=== PATIENT | female | born 1985 | race Caucasian/White ===

== ENCOUNTER 2019-08-04 14:40 | Outpatient (RCR) | payer OTHER, SELFPAY ==
[2019-08-04 14:45] VITALS: BMI 37.4
== END 2019-11-02 23:59 | disposition home or self-care (01) ==
LOC: ANHDMC 14:40
PROVIDERS: Visit Provider Obstetrics & Gynecology
DX: O24.419 Gestational diabetes mellitus in pregnancy, unspecified control (principal); Z3A.33 33 weeks gestation of pregnancy; Z71.3 Dietary counseling and surveillance
CPT/HCPCS: 97802

== ENCOUNTER 2019-09-08 11:19 | Outpatient (RCR) | payer OTHER, SELFPAY ==
[2019-08-03 14:47] VITALS: BP 116/71; PULSE 83
[2019-08-06 17:38] VITALS: BP 116/71; PULSE 99
[2019-08-10 07:49] VITALS: BP 109/72; PULSE 112
[2019-08-13 16:30] VITALS: BP 116/77; PULSE 92
[2019-08-17 16:23] VITALS: BP 101/70; PULSE 101
[2019-08-20 15:51] VITALS: BP 121/73; PULSE 117
[2019-08-21 14:43] VITALS: BP 112/73; PULSE 99
[2019-08-24 14:51] VITALS: BP 115/69; PULSE 108
[2019-08-27 15:00] VITALS: BP 120/68; PULSE 86
[2019-08-31 13:18] VITALS: BP 112/69; PULSE 95
[2019-09-03 12:50] VITALS: BP 118/77; PULSE 94
--- NOTE | ~2019-09-08 | US_ITS ---
US OB follow up w BPP DATE: 08/13/2019 17:04 INDICATION: Nonreactive nonstress test. Gestational diabetes. TECHNIQUE: Real-time imaging and Doppler analysis COMPARISON: 08/06/2019 obstetrical ultrasound examination with biophysical profile FINDINGS: Live watson intrauterine gestation, fetus in vertex presentation, longitudinal lie, feta l heart rate of 152 bpm. Subjectively normal amount of amniotic fluid. Amniotic fluid measures 14.63 cm. 5th percentile OSVALDO is 7.7 cm. 95th percentile OSVALDO is 24.9 cm. BIOPHYSICAL PROFILE reported by pump house technician: breathin out of 2 movement: 2 out of 2 tone: 2 out of 2 Amniotic fluid pocket: 2 out of 2 Total score: 8 out of 8 IMPRESSION: Normal biophysical profile score of 8 out of 8 Reviewed, dictated and finalized at Location A. Reviewed, dictated and finalized at location B. ORESIST CONTACT PRINTER
--- NOTE | ~2019-09-08 | US_ITS ---
US OB follow up w BPP DATE: 08/27/2019 15:04 INDICATION: Non-reactive non stress test. Gestational diabetes. TECHNIQUE: Real time imaging and doppler analysis. COMPARISON: 08/06/2019 obstetrical ultrasound with BPP FINDINGS: Live watson intrauterine gestation, fetus in longitudinal lie, vertex presentation. Fe annemarie heart rate of 163 beats per minute. Fundal placenta. BPD: 9.54 cm; estimated gestational age of 39 weeks Head circumference: 33.81 cm; 38 weeks 6 days Abdominal circumference: 35.65 cm; 39 weeks 4 days Femur length: 7.09 cm; 36 weeks 2 days Composite age by Hadlock formula: 38 weeks 3 days plus or minus 2 weeks 5 days STACI: 09/07/2019 (compared to 09/10/2019 by LMP) Estimated weight: 3574 plus or minus 536 grams FL/BPD: 74.30 (normal range 71.0 - 87.0) HC/AC: 0.95 (normal range 0.88 - 1.06) FL/AC: 19.89 (normal range 20.00 - 24.00) FL/HC: 20.97 (normal range 20.77 - 23.00) BIOPHYSICAL PROFILE reported by medical technician assistant: breathin out of 2 movement: 2 out of 2 tone: 2 out of 2 Amniotic fluid pocket: 2 out of 2 Total score: 8 out of 8 IMPRESSION: Normal biophysical profile of 8 out of 8 Composite age by Hadlock formula: 38 weeks 3 days plus or minus 2 weeks 5 days STACI: 09/07/2019 (compared to 09/10/2019 by LMP) Estimated weight: 3574 plus or minus 536 grams Reviewed, dictated and finalized at Location A. Reviewed, dictated and finalized at location B. LERATOR TECHNICIAN
--- NOTE | ~2019-09-08 | US_ITS ---
EXAMINATION: US OB BPP wo non-stress DATE: 09/03/2019 12:55 INDICATION: Gestational diabetes. Third trimester. TECHNIQUE: Real-time pelvic ultrasound was performed. COMPARISON: Ultrasound 08/27/2019 FINDINGS: There is a single living fetus in vertex presentation. The placenta is fundal. heart rate is 1 45 beats per minute (bpm). Biophysical profile performed by the technologist: breathing (30 sec sustained breathing in 30 minutes): 2 out of 2 movement (3 gross body movements in 30 minutes): 2 out of 2 tone (one episode of qhbwrka-kvduwwgbk-fqfvxsh limb movement): 2 out of 2 Amniotic fluid pocket (2 cm): 2 out of 2 Total score: 8 out of 8 IMPRESSION: 1. Single living fetus in vertex presentation. 2. Biophysical profile 8 out of 8. Reviewed, dictated and finalized at location A. RICT EXTENSION SERVICE AGENT
--- NOTE | ~2019-09-08 | US_ITS ---
EXAMINATION: US OB limited w BPP EXAM DATE: 08/20/2019 15:32 INDICATION: Gestational diabetes. Assess biophysical profile and amniotic fluid index. Third [facility] er. TECHNIQUE: Pelvic obstetrical transabdominal sonogram was performed by a technologist. There are mu ltiple grayscale and Doppler images available for interpretation. Comparison is made to prior examina tion from 08/13/2019. FINDINGS: There is a single fetus identified in vertex presentation with a heart rate of 165 beats pe r minute. The placenta is located in the fundal position. There is no sonographic evidence of retrop lacental hemorrhage identified. The amniotic fluid index is 14.0 centimeters, which is normal. BIOPHYSICAL PROFILE (performed by the technologist) breathing (30 sec sustained breathing in 30 minutes): 2 out of 2 movement (3 gross body movements in 30 minutes): 2 out of 2 tone (one episode of stahmyy-tdordbfme-unsehks limb movement): 2 out of 2 Amniotic fluid pocket (2 cm): 2 out of 2 Total score: 8 out of 8 IMPRESSION: 1. Single fetus with heart rate of 165 bpm. 2. Normal biophysical profile score of 8 out of 8. 3. Normal OSVALDO 14 cm. Reviewed, dictated and finalized at location A. BING SERVICE TECHNICIAN
--- NOTE | ~2019-09-08 | US_ITS ---
EXAMINATION: US OB BPP wo non-stress DATE: 08/06/2019 16:22 OUTBOARD MOTOR INSPECTOR INDICATION: Gestational diabetes TECHNIQUE: Real-time transabdominal obstetric ultrasound. FINDINGS: 07/30/2019 There is a single living fetus in vertex presentation. The placenta is anterior without placenta pre via. cardiac activity and movement is noted with a heart rate of 126 beats per minute. Biophysical profile: breathin of 2 movement: 2 of 2 tone: 2 of 2 Amniotic flud pocket: 2 of 2 Total score: 8 of 8 IMPRESSION: 1. Single living intrauterine in vertex presentation. 2: Total biophysical profile score of 8/8. Reviewed, dictated and finalized at location B. OARD MOTOR INSPECTOR
[2019-09-08 11:49] VITALS: BP 120/75; PULSE 114
== END 2019-09-14 08:25 | disposition home or self-care (01) ==
LOC: ANHOBOP 11:19
PROVIDERS: Visit Provider Obstetrics & Gynecology
DX: O24.419 Gestational diabetes mellitus in pregnancy, unspecified control (principal); Z3A.33 33 weeks gestation of pregnancy; Z3A.34 34 weeks gestation of pregnancy; Z3A.35 35 weeks gestation of pregnancy; Z3A.36 36 weeks gestation of pregnancy; Z3A.37 37 weeks gestation of pregnancy; Z3A.38 38 weeks gestation of pregnancy
CPT/HCPCS: 59025; 76815; 76816; 76819

== ENCOUNTER 2019-09-11 05:02 | Inpatient (IN) | payer OTHER, SELFPAY ==
[2019-09-11] VITALS (31 sets, daily range): BP systolic 98–137; BP diastolic 44–92; PULSE 64–161; RESP 18; TEMP 36.6–37.2; O2SAT 100; BMI 38.6
[2019-09-11 05:55] LABS: Glucose Point of Care 81 (65-105)
[2019-09-11 06:02] LABS: Basophils Percent Auto 0.5 % (0.2-1.2); Eosinophils Absolute Auto 0.2 K/mm3 (0-0.3); Eosinophils Percent Auto 2.2 % (0-4.4); Hematocrit 36.7 % (37.0-47.0); Hemoglobin 11.2 g/dL (12.0-15.0); Immature Granulocyte Absolute 0.07 K/mm3 (0.00-0.031); Immature Granulocyte Percent A 0.8 % (0-0.5); Lymphocytes Absolute Auto 2.49 K/mm3 (0.9-3.2); Mean Corpuscular HGB Conc 30.5 g/dl (32-36); Mean Corpuscular Hemoglobin 23.4 pg (26-34); Mean Corpuscular Volume 76.8 fl (80-100); Mean Platelet Volume 11.3 fl (7.4-10.4); Monocytes Absolute Auto 0.7 K/mm3 (0.1-0.6); Monocytes Percent Auto 8.1 % (2.6-8.5); Neutrophils Absolute Auto 5.1 K/mm3 (1.3-6.7); Neutrophils Percent Auto 59.4 % (45.5-73.1); Platelet Count Result 246 k/mm3 (150-375); Red Blood Count 4.78 M/mm3 (4.2-5.4); Red Cell Distribution Width 16.1 % (11.5-14.5); White Blood Count 8.6 K/mm3 (4.5-10.0)
[2019-09-11] MEDS: LACTATED RINGERS 1,000 ML 125 ML IV CONT ×2 (06:03→08:25)
[2019-09-11 08:51] LABS: Glucose Point of Care 70 (65-105)
--- NOTE | 2019-09-11 08:57 | WPDANESEPP ---
Anes - Eval Pre Procedure Procedure: labor epidural Date/Time: 09/11/19 08:57 Surgeon: master Pre Op Diagnosis: INDUCTION OF LABOR Patient Data Age: 34 Gender: F Height: 1.63 m Weight: 102 kg Last Vital Signs Temp 37.2 C 09/11/19 08:26 Pulse 92 09/11/19 08:32 BP 130/79 09/11/19 08:32 Allergies Allergy/AdvReac Type Severity Reaction Status Date / Time No Known Allergies Allergy Unknown Verified 08/22/19 12:46 Home Medications Medication Instructions Recorded Confirmed Type PNV cmb#95-ferrous fumarate-FA 1 tablet PO DAILY 07/09/19 09/03/19 History [] aspirin 81 mg PO DAILY 07/09/19 09/03/19 History Laboratory Tests 09/11/19 09/11/19 09/11/19 05:50 05:50 05:50 WBC 8.6 K/mm3 K/mm3 (4.5-10.0) RBC 4.78 M/mm3 M/mm3 (4.2-5.4) Hgb 11.2 g/dL L g/dL (12.0-15.0) Hct 36.7 % L % (37.0-47.0) MCV 76.8 fl L fl (80-100) MCH 23.4 pg L pg (26-34) MCHC 30.5 g/dl L g/dl (32-36) RDW 16.1 % H % (11.5-14.5) Plt Count 246 k/mm3 k/mm3 (150-375) MPV 11.3 fl H fl (7.4-10.4) Immature Gran % (Auto) 0.8 % H % (0-0.5) Neut % (Auto) 59.4 % % (45.5-73.1) Lymph % (Auto) 29.0 % % (18.3-44.2) [place] % (Auto) 8.1 % % (2.6-8.5) Eos % (Auto) 2.2 % % (0-4.4) Baso % (Auto) 0.5 % % (0.2-1.2) Lymph # (Auto) 2.49 K/mm3 K/mm3 (0.9-3.2) [place] # (Auto) 0.7 K/mm3 H K/mm3 (0.1-0.6) Eos # (Auto) 0.2 K/mm3 K/mm3 (0-0.3) Baso # (Auto) 0.0 K/mm3 K/mm3 (0.0-0.1) Abs Immat Gran (auto) 0.07 K/mm3 H K/mm3 (0.00-0.031) Absolute Neuts (auto) 5.1 K/mm3 K/mm3 (1.3-6.7) Absolute Nucleated RBC 0.0 K/mm3 K/mm3 (0.0-0.012) Nucleated RBC % 0.0 % % (0.0-0.2) POC Capillary Glucose RPR Pending Blood Type B Positive Antibody Screen Negative 09/11/19 09/11/19 05:51 08:39 WBC RBC Hgb Hct MCV MCH MCHC RDW Plt Count MPV Immature Gran % (Auto) Neut % (Auto) Lymph % (Auto) [place] % (Auto) Eos % (Auto) Baso % (Auto) Lymph # (Auto) [place] # (Auto) Eos # (Auto) Baso # (Auto) Abs Immat Gran (auto) Absolute Neuts (auto) Absolute Nucleated RBC Nucleated RBC % POC Capillary Glucose 81 mg/dl mg/dl 70 mg/dl mg/dl (65-105) (65-105) RPR Blood Type Antibody Screen : gestational age (39 weeks) Patient hx anesthesia problems: none Family hx anesthesia problems: none PMFSH Family History Family History (Updated 08/22/19 @ 12:47 by Sadie Curiel RN) Other Unknown family medical history Social History Social History Smoking status: Never smoker Substance use: never Spiritual care concerns: No Exam Day of Procedure 09/11/19 08:57
[2019-09-11 09:02] LABS: Rapid Plasma Reagin Non-Reactive (NonReactive)
--- NOTE | 2019-09-11 11:22 | PM.OBPRVD ---
OB - Delivery Note Procedure Delivery date: 09/11/19 events: Gestational Diabetes Route of delivery: Laceration description: Perineal - 1st Degree Delivery repair: chromic Specimen: Yes Estimated blood loss (mL): 200 Anesthesia type: None Disposition: floor Narrative: Patient prepped and draped in the usual manner this procedure. Maternal expulsive efforts shortly delivered vertex. Further effort delivered the anterior shoulder without difficulty. Further effort delivered posterior shoulder and the rest of baby was delivered without difficulty. Cord was clamped and cut and placenta delivered spontaneously. Cervix midline vulvar inspected. A first-degree vaginal wall laceration was noted injected with lidocaine in approximation to 0 chromic. The uterus was well contracted at this point the procedure was considered terminated. Immediate post condition of mother and baby both excellent. Baby Weeks of gestation at delivery: 39 gender: Male Weight (pounds): 8 Weight (ounces): 11 presentation: vertex Placenta delivery description: Spontaneous cord vessel description: 3 Vessels score one minute: 8 score five minutes: 9
[2019-09-11] MEDS: WITCH HAZEL 40 PADS 1 PAD TOPICAL (13:45)
[2019-09-11] MEDS: ACETAMINOPHEN 325 MG TABLET 650 MG PO (13:45)
[2019-09-11] MEDS: BENZOCAINE 20% AER SPR (*SP) 56 GM CAN 1 SPRAY TOPICAL (13:45)
[2019-09-11] MEDS: IBUPROFEN 600 MG TABLET PO (13:46)
--- NOTE | 2019-09-11 15:24 | PC.NURSE ---
Patient transferred to post room #281 via wheelchair. Support person present. Oriented to unit, room, information board, rooming in, admission packet and security measures. Patient verbalizes understanding.
[2019-09-12 05:35] LABS: Hematocrit 34.1 % (37.0-47.0); Hemoglobin 10.4 g/dL (12.0-15.0)
[2019-09-12 07:40] VITALS: BP 131/80; PULSE 100; RESP 18; TEMP 36.6; O2SAT 98
[2019-09-12 07:45] VITALS: PULSE 100; RESP 18; O2SAT 98
[2019-09-12] MEDS: IBUPROFEN 600 MG TABLET PO ×2 (08:37→18:03)
[2019-09-12] MEDS: DOCUSATE SODIUM 100 MG CAPSULE PO ×2 (08:37→18:03)
[2019-09-12] MEDS: MULTIVIT/MIN/PREN/FOL AC/IRON TABLET 1 TAB PO (08:38)
[2019-09-12] MEDS: LANOLIN (LANSINOH) 7.5 GM CREAM 1 APPLIC TOPICAL (08:38)
--- NOTE | 2019-09-12 09:39 | PM.OBPNVD ---
OB - PN: Subj Subjective Date/time seen: 09/12/19 09:39 Interval history: 34yo s/p on 09/11. Some soreness when ambulating and moving. Some pain at epidural site. Denies chest pain, shortness of breath, nausea. Tolerating diet. Patient comments: no complaints and pain well controlled baby status: doing well OB - PN: Obj Data Labs CBC & Chem 7: 09/12/19 05:24 Labs: Laboratory Results - last 24 hr 09/12/19 05:24 Hgb 10.4 L Hct 34.1 L OB - PN A/P Assessment and Plan (1) (normal spontaneous vaginal delivery): Code(s): O80 - Encounter for full-term uncomplicated delivery Status: Acute Assessment and Plan: Routine care Pain management Ambulate DC home tomorrow, 09/13. Time Spent With Patient Time: Total time spent is greater than 50% in coordination of care (as documented) at patient's floor/unit and/or counseling patient: Exam Const: General: comfortable, no acute distress, alert and awake Orientation/consciousness: patient oriented x3 Resp: Effort & Inspection: normal respiratory effort Auscultation: clear to auscultation bilaterally Cardio: Rate: regular rate GI: Other: soft, nontender, nondistended
[2019-09-12 18:35] VITALS: BP 116/78; PULSE 74; RESP 12; TEMP 36.7
[2019-09-13 08:00] VITALS: BP 112/72; PULSE 82; RESP 18; RESP 20; TEMP 36.8; O2SAT 100
[2019-09-13] MEDS: MULTIVIT/MIN/PREN/FOL AC/IRON TABLET 1 TAB PO (09:09)
[2019-09-13] MEDS: DOCUSATE SODIUM 100 MG CAPSULE PO (09:09)
[2019-09-13] MEDS: WITCH HAZEL 40 PADS 1 PAD TOPICAL (09:09)
[2019-09-13] MEDS: BENZOCAINE 20% AER SPR (*SP) 56 GM CAN 1 SPRAY TOPICAL (09:09)
[2019-09-13] MEDS: IBUPROFEN 600 MG TABLET PO (09:09)
--- NOTE | 2019-09-13 09:38 | PM.OBDSVD ---
DS: Diagnosis Admitting Diagnosis Admitting Diagnosis: Encounter for full-term uncomplicated delivery Discharge Diagnosis (1) (normal spontaneous vaginal delivery): Code(s): O80 - Encounter for full-term uncomplicated delivery Status: Acute Assessment and Plan: Stable for DC home Follow up in office for visit in 4 weeks (2) Gestational diabetes: Code(s): O24.419 - Gestational diabetes mellitus in , unspecified control Status: Acute OB - DS: Summary OB Procedures : None OB Procedures Intrapartum: Spontaneous Vag Delivery OB Procedures: : None Time Spent with Patient Time attestation: Total time spent providing and/or coordinating discharge services: Exam Const: General: comfortable, no acute distress, alert and awake Orientation/consciousness: patient oriented x3 Resp: Effort & Inspection: normal respiratory effort Cardio: Rate: regular rate DS: Data Data Completed and Pending Pending studies at discharge: Pending at discharge 09/11/19 11:05 Surgical [PTH] Routine Discharge Plan Discharge Attending physician on discharge: Bayron Burleson Discharging Clinician: Mc Hidalgo Patient Disposition: Home, Self-Care Activity: may shower and as tolerated Diet: regular Patient Instructions: Antibiotic Form Stand Alone Forms: General Discharge Information Follow-up/Referrals: Mc Hidalgo MD [Physician] - (4 weeks) Discharge Medications: New docusate sodium 100 mg Capsule 100 mg PO BID PRN (Reason: Constipation) Qty: 60 RF: 0 ibuprofen 600 mg Tablet 600 mg PO Q6H PRN (Reason: Cramping) Qty: 90 RF: 0 Continued PNV cmb#95-ferrous fumarate-FA [] 28 mg iron- 800 mcg Tablet 1 tablet PO DAILY RF: 0 Discontinued aspirin 81 mg tablet,delayed release (DR/EC) 81 mg PO DAILY RF: 0 Date of admission: 09/11/19 05:02 Primary Care Provider: PHYSICIAN NOT ON STAFF,NONSTAFF Admitting Provider: Mc Hidalgo Attending physician on admission: Mc Hidalgo
--- NOTE | 2019-09-13 10:01 | PC.NURSE ---
Self care and infant care instructions given including follow up visit date and time. Mother verbalized understanding. No questions or concerns verbalized. Very pleasant and cooperative.
[2019-09-14 08:22] VITALS: BP 129/79; PULSE 77; RESP 20; TEMP 36.6
== END 2019-09-13 10:36 | disposition home or self-care (01) | DRG 807 ==
LOC: ANHLDR 05:09 → ANHOB2 09-13 09:38 → ANHLDR 09-16 06:33 → ANHOB2 09-16 06:33
PROVIDERS: Admitting Provider Obstetrics & Gynecology; Visit Provider Obstetrics & Gynecology
DX: O24.429 Gestational diabetes mellitus in childbirth, unspecified control (principal); O70.0 First degree perineal laceration during delivery; O62.3 Precipitate labor; Z37.0 Single live birth; Z3A.39 39 weeks gestation of pregnancy
CPT/HCPCS: 36415; 85014; 85018; 85025; 86592; 86850; 86900; 86901; 88307; A9270; J2590; J2795; J3010; J7120

== ENCOUNTER 2021-12-26 10:13 | Outpatient (CLI) | payer BC, SELFPAY ==
--- NOTE | ~2021-12-26 | US_ITS ---
US OB <=14 wk fetus w TV DATE: 12/26/2021 10:57 INDICATION: Positive test. Unknown dates. TECHNIQUE: Real-time imaging via transabdominal and transvaginal approaches COMPARISON: None FINDINGS: The uterus measures approximately 10.4 cm height, up to 5.7 cm AP and 7.4 cm transverse dim ension. An intrauterine gestational sac is noted surrounding hyper echogenicity consistent with decid ual reaction. Yolk sac and pole are detected but no cardiac motion is noted. [employer]-rump length averaging 0.76 cm consistent with 6 weeks 5 days estimated gestational age. The ovaries are unremarkable. No pelvic mass or abnormal pelvic fluid collection is noted. IMPRESSION: demise at approximately 6 weeks 5 days estimated gestational age Reviewed, dictated and finalized at Location A. Reviewed, dictated and finalized at location A.
== END 2021-12-26 10:14 | disposition home or self-care (01) ==
PROVIDERS: PCP Nurse Practitioner Adult Health; Visit Provider Nurse Practitioner Adult Health
DX: Z32.01 Encounter for pregnancy test, result positive (principal); O02.1 Missed abortion
CPT/HCPCS: 76801; 76817

== ENCOUNTER 2022-11-22 23:35 | Observation (INO) | payer BC, SELFPAY ==
[2022-11-22 23:59] VITALS: BP 136/84; PULSE 112
[2022-11-23] VITALS: BP 136/75; PULSE 107
--- NOTE | 2022-11-23 00:30 | OBADM ---
This patient, Shaye Heller, admitted to the OB room OB Post 116 for observation. Patient/family oriented to hospital policies and general routines including ID bracelet, bed and alarms, visiting hours, pain management, procedures, bathroom and other care routines, personal items, smoking policy, room service/diet, and visiting hours. Patient/Family are encouraged to report perceived risks to care and to ask questions if they do not understand what they are told or what they should do.
--- NOTE | 2022-11-23 00:52 | PC.NURSE ---
Called Dr. Celaya that patient complains of vaginal bleeding after intercourse. Pt reports intercourse at 2230 and have a spot of bleeding then 30 minutes went to the bathroom and had a gush of blood. Pt is not longer bleeding upon arrival of hospital. Made him aware pt is rené on the monitor and she feels them as mild cramping. Pt PO hydrated and contractions had decreased. Orders to discharge patient.
--- NOTE | 2022-12-10 13:29 | PM.OBTRLD ---
OB - Triage/Final Diagnosis Visit Information Comments/Additional reasons for admission: I have assessed the risk for this patient, Shaye Heller, and determined that she would benefit from observation care. Final Diagnosis (1) Vaginal bleeding: Code(s): N93.9 - Abnormal uterine and vaginal bleeding, unspecified Status: Acute
== END 2022-11-23 01:15 | disposition home or self-care (01) ==
PROVIDERS: Admitting Provider Obstetrics & Gynecology; Visit Provider Obstetrics & Gynecology
DX: O46.90 Antepartum hemorrhage, unspecified, unspecified trimester (principal); O24.419 Gestational diabetes mellitus in pregnancy, unspecified control; Z3A.00 Weeks of gestation of pregnancy not specified
CPT/HCPCS: G0378; G0379

== ENCOUNTER 2022-12-08 07:44 | Inpatient (IN) | payer BC, SELFPAY ==
[2022-12-08] VITALS (17 sets, daily range): BP systolic 113–142; BP diastolic 76–92; PULSE 87–122; RESP 18; TEMP 36.6–37; O2SAT 96–100; BMI 40.4
[2022-12-08 08:44] LABS: Basophils Percent Auto 0.4 % (0.2-1.2); Eosinophils Absolute Auto 0.2 K/mm3 (0-0.3); Eosinophils Percent Auto 1.9 % (0-4.4); Hematocrit 41.7 % (37.0-47.0); Hemoglobin 13.3 g/dL (12.0-15.0); Immature Granulocyte Absolute 0.09 K/mm3 (0.00-0.031); Immature Granulocyte Percent A 0.9 % (0-0.5); Lymphocytes Absolute Auto 2.09 K/mm3 (0.9-3.2); Lymphocytes Percent Auto 21.6 % (18.3-44.2); Mean Corpuscular HGB Conc 31.9 g/dl (32-36); Mean Corpuscular Hemoglobin 26.4 pg (26-34); Mean Corpuscular Volume 82.9 fl (80-100); Mean Platelet Volume 11.7 fl (7.4-10.4); Monocytes Absolute Auto 0.6 K/mm3 (0.1-0.6); Monocytes Percent Auto 6.5 % (2.6-8.5); Neutrophils Absolute Auto 6.6 K/mm3 (1.3-6.7); Neutrophils Percent Auto 68.7 % (45.5-73.1); Platelet Count Result 207 k/mm3 (150-375); Red Blood Count 5.03 M/mm3 (4.2-5.4); Red Cell Distribution Width 17.2 % (11.5-14.5); White Blood Count 9.7 K/mm3 (4.5-10.0)
--- NOTE | 2022-12-08 08:47 | LDADM ---
This patient, Shaye Heller, was admitted to Labor/Delivery/Recovery 107 on 12/08/22 at 07:44. Plans for labor, pain management and were discussed with patient. Patient/family oriented to hospital policies and general routines including ID bracelet, bed and alarms, visiting hours, pain management, procedures, bathroom and other care routines, personal items, smoking policy, room service/diet and guest tray routines, security routines, and visiting hours. Patient/Family are encouraged to report perceived risks to care and to ask questions if they do not understand what they are told or what they should do. See OBIX for further documentation.
[2022-12-08 09:07] LABS: Glucose Point of Care 92 mg/dl (65-105)
[2022-12-08 09:35] LABS: HIV 1/2 Ab P24 Ag Result Negative (Negative)
--- NOTE | 2022-12-08 10:44 | WPDOBADMIT ---
Obstetrics - Admit Note Admission Note: record reviewed. No pertinent additions to the history and/or any subsequent changes in the physical findings that are not consistent with the expected course of the were found.Pt admitted to after SROM, SVE /-2 by RN, anticipate vaginal delivery Additions to the history and/or subsequent changes in the physical findings follow. None.
[2022-12-08 11:06] LABS: Glucose Point of Care 102 mg/dl (65-105)
[2022-12-08] MEDS: LACTATED RINGERS 1,000 ML 125 ML IV CONT (11:07)
[2022-12-08] MEDS: OXYTOCIN 30 UNITS/NS 500 ML 30 UNITS/500 ML BAG IV CONT ×2 (11:10→11:51)
--- NOTE | 2022-12-08 11:34 | PM.OBPRVD ---
OB - Delivery Note Procedure Delivery date: 12/08/22 Procedure: Events: Chronic Hypertension and Gestational Diabetes (diet controlled) Induction method: None Delivery monitor: External FHT and External Uterine Route of delivery: Episiotomy description: None Laceration Description: None Specimen: No Quantitative Blood Loss (ml): 80 Anesthesia type: None Disposition: Floor Baby Date of : 12/08/22 Time of : 11:22 Weeks of gestation at delivery: 37 Infant gender: Male Weight (pounds): 8 Weight (ounces): 0 presentation: vertex position: Left Occiput Anterior Placenta delivery description: Spontaneous Cord Vessel Description: 3 Vessels, Nuchal Cord, Loose (x1), Clamped/Cut and Delayed Cord Clamping score one minute: 7 score five minutes: 9 Narrative: mother and baby in stable condition
[2022-12-08] MEDS: BENZOCAINE 20% AER SPR (*SP) 56 GM CAN 1 SPRAY TOPICAL (12:43)
[2022-12-08] MEDS: IBUPROFEN 600 MG TABLET PO ×2 (12:43→19:54)
[2022-12-08] MEDS: WITCH HAZEL 40 PADS 1 PAD TOPICAL (12:43)
--- NOTE | 2022-12-08 13:55 | OBPPTRN ---
Patient transferred to post room # 291 via wheelchair. Support person present. Oriented to unit, room, information board, rooming in, admission packet and security measures. Patient verbalizes understanding.
[2022-12-08] MEDS: FAMOTIDINE 20 MG TABLET PO (16:26)
[2022-12-09 00:34] VITALS: BP 124/80; PULSE 85; RESP 16; TEMP 36.3; O2SAT 100
[2022-12-09 05:38] VITALS: BP 129/87; PULSE 89; RESP 18; TEMP 36.6; O2SAT 98
[2022-12-09 06:07] LABS: Hematocrit 35.1 % (37.0-47.0); Hemoglobin 11.3 g/dL (12.0-15.0)
[2022-12-09 08:10] VITALS: BP 115/73; PULSE 87; RESP 18; TEMP 37.3
--- NOTE | 2022-12-09 08:35 | PM.OBPNVD ---
OB - PN: Subj Subjective Date/time seen: 12/09/22 08:35 Patient comments: no complaints and pain well controlled baby status: doing well and bottle feeding well Narrative: Ready for DC home. OB - PN: Obj Data Labs 12/09/22 05:50 Labs: Laboratory Results - last 24 hr 12/08/22 12/08/22 12/08/22 08:33 09:04 11:02 WBC 9.7 RBC 5.03 Hgb 13.3 Hct 41.7 MCV 82.9 MCH 26.4 MCHC 31.9 L RDW 17.2 H Plt Count 207 MPV 11.7 H Immature Gran % (Auto) 0.9 H Neut % (Auto) 68.7 Lymph % (Auto) 21.6 [place] % (Auto) 6.5 Eos % (Auto) 1.9 Baso % (Auto) 0.4 Lymph # (Auto) 2.09 [place] # (Auto) 0.6 Eos # (Auto) 0.2 Baso # (Auto) 0.0 Abs Immat Gran (auto) 0.09 H Absolute Neuts (auto) 6.6 Absolute Nucleated RBC 0.0 Nucleated RBC % 0.0 POC Capillary Glucose 92 102 HIV 1&2 Ab/P24 Ag 4thGn Negative Blood Type B Positive Antibody Screen Negative 12/09/22 05:50 WBC RBC Hgb 11.3 L Hct 35.1 L MCV MCH MCHC RDW Plt Count MPV Immature Gran % (Auto) Neut % (Auto) Lymph % (Auto) [place] % (Auto) Eos % (Auto) Baso % (Auto) Lymph # (Auto) [place] # (Auto) Eos # (Auto) Baso # (Auto) Abs Immat Gran (auto) Absolute Neuts (auto) Absolute Nucleated RBC Nucleated RBC % POC Capillary Glucose HIV 1&2 Ab/P24 Ag 4thGn Blood Type Antibody Screen OB - PN A/P Assessment and Plan (1) , delivered: Code(s): O80 - Encounter for full-term uncomplicated delivery Status: Acute Plan day: 1 Plan: routine care and discharge home Comments: circumcision- consented, will complete. Time Spent With Patient Time: Total time spent is greater than 50% in coordination of care (as documented) at patient's floor/unit and/or counseling patient: Time with patient: less than 15 minutes Exam Narrative: NAD abdomen soft, nontender, fundus firm below the umbilicus Extremities nontender, 1+ edema
--- NOTE | 2022-12-09 08:37 | P.DS_ITS ---
DS: Admitting Diagnosis Discharge Date 12/09/22 Admitting Diagnosis SROM, term DS: Discharge Diagnosis Discharge Diagnosis (1) , delivered: Code(s): O80 - Encounter for full-term uncomplicated delivery Status: Acute OB - DS: Summary Hospital Course Hospital Course: Shaye was admitted for SROM at term. SHe proceeded to have an uncomplicated delivery and course and was discharged home on PPD 1. OB Procedures : Ultrasound OB Procedures Intrapartum: Spontaneous Vag Delivery OB Procedures: : None Peripartum Data Delivery Method: Natural Vaginal complications: none Status at Discharge Functional status at discharge: independent ambulation Time Spent with Patient Time attestation: Total time spent providing and/or coordinating discharge services: Exam Narrative: NAD abdomen soft, appropriately tender Ext non tender, 1+ edema DS: Data Data Completed and Pending Labs on day of discharge: Labs from last 24 hours 12/09/22 12/08/22 12/08/22 05:50 11:02 09:04 WBC RBC Hgb 11.3 L Hct 35.1 L MCV MCH MCHC RDW Plt Count MPV Immature Gran % (Auto) Neut % (Auto) Lymph % (Auto) [place] % (Auto) Eos % (Auto) Baso % (Auto) Lymph # (Auto) [place] # (Auto) Eos # (Auto) Baso # (Auto) Abs Immat Gran (auto) Absolute Neuts (auto) Absolute Nucleated RBC Nucleated RBC % POC Capillary Glucose 102 92 RPR HIV 1&2 Ab/P24 Ag 4thGn Blood Type Antibody Screen 12/08/22 08:33 WBC 9.7 RBC 5.03 Hgb 13.3 Hct 41.7 MCV 82.9 MCH 26.4 MCHC 31.9 L RDW 17.2 H Plt Count 207 MPV 11.7 H Immature Gran % (Auto) 0.9 H Neut % (Auto) 68.7 Lymph % (Auto) 21.6 [place] % (Auto) 6.5 Eos % (Auto) 1.9 Baso % (Auto) 0.4 Lymph # (Auto) 2.09 [place] # (Auto) 0.6 Eos # (Auto) 0.2 Baso # (Auto) 0.0 Abs Immat Gran (auto) 0.09 H Absolute Neuts (auto) 6.6 Absolute Nucleated RBC 0.0 Nucleated RBC % 0.0 POC Capillary Glucose RPR Pending HIV 1&2 Ab/P24 Ag 4thGn Negative Blood Type B Positive Antibody Screen Negative Discharge Plan Discharge Attending physician on discharge: Kristen Crespo Discharging Clinician: Kristen Crespo Anticipated Discharge Date/Time: 12/09/22 08:36 Patient Disposition: Home, Self-Care Activity: pelvic rest Diet: regular Patient Instructions: Antibiotic Form Stand Alone Forms: General Discharge Information Follow-up/Referrals: Kristen Crespo MD [Physician] - 4 Weeks Discharge Medications: Continued PNV cmb#95-ferrous fumarate-FA [] 28 mg iron- 800 mcg Tablet 1 tablet PO DAILY Date of admission: 12/08/22 07:44 Primary Care Provider: PHYSICIAN,SINGLE WIRE SAW OPERATOR Admitting Provider: Will Celaya Attending physician on admission: Will Celaya
[2022-12-10 09:43] LABS: Rapid Plasma Reagin Non-Reactive (NonReactive)
[2022-12-12 09:21] VITALS: BP 127/81; PULSE 77; RESP 18; TEMP 36.9; O2SAT 98
== END 2022-12-09 12:52 | disposition home or self-care (01) | DRG 806 ==
LOC: ANHOB2 12-09 11:19 → ANHLDR 12-11 09:55 → ANHOB2 12-11 09:55
PROVIDERS: Advanced Practice Midwife; Obstetrics & Gynecology; Admitting Provider Obstetrics & Gynecology; Visit Provider Obstetrics & Gynecology
DX: O24.420 Gestational diabetes mellitus in childbirth, diet controlled (principal); O10.92 Unspecified pre-existing hypertension complicating childbirth; Z37.0 Single live birth; Z3A.37 37 weeks gestation of pregnancy; O69.81X0 Labor and delivery complicated by cord around neck, without compression, not applicable or unspecified
CPT/HCPCS: 36415; 82948; 84112; 85014; 85018; 85025; 86592; 86703; 86850; 86900; 86901; A9270; G0432; J2590; J7120